=== PATIENT | female | born 1975 | race Two or more races ===

== ENCOUNTER 2022-09-08 07:33 | Outpatient (CLI) | payer OTHER | END 2022-09-08 07:39 | disposition home or self-care (01) | LOC: LAB 07:33 | PROVIDERS: ATTEND Obstetrics & Gynecology | DX: N91.2 Amenorrhea, unspecified (principal); E78.5 Hyperlipidemia, unspecified; E34.9 Endocrine disorder, unspecified; N95.1 Menopausal and female climacteric states; R19.00 Intra-abdominal and pelvic swelling, mass and lump, unspecified site; N39.0 Urinary tract infection, site not specified; E55.9 Vitamin D deficiency, unspecified; E23.6 Other disorders of pituitary gland ==

== ENCOUNTER 2022-09-20 14:25 | Outpatient (CLI) | payer OTHER | END 2022-09-20 14:29 | disposition home or self-care (01) | LOC: MAMO-SONO 14:25 | PROVIDERS: ATTEND Obstetrics & Gynecology | DX: N63.10 Unspecified lump in the right breast, unspecified quadrant (principal); N63.20 Unspecified lump in the left breast, unspecified quadrant; Z12.31 Encounter for screening mammogram for malignant neoplasm of breast ==

== ENCOUNTER 2024-08-14 06:21 | Outpatient (CLI) | payer OTHER ==
[2024-08-14 07:49] LABS: URINE BACTERIA 303.5 uL (0.0-1933); URINE EPITHELIAL CELLS 5.6 uL (0.0-38.8); URINE RBC 11.7 uL (0.0-20.8); URINE WBC 18.9 uL (0.0-23.2)
[2024-08-14 08:00] LABS: URINE BILIRRUBIN NEGATIVE (NEGATIVE); URINE BLOOD MODERATE; URINE GLUCOSE NEGATIVE (NEGATIVE); URINE KETONE NEGATIVE (NEGATIVE); URINE LEUKOCYTE NEGATIVE; URINE NITRATE NEGATIVE; URINE PROTEIN NEGATIVE (NEGATIVE); URINE UROBILINOGEN 0.2 E.U./dl
[2024-08-14 08:02] LABS: URINE APPEARANCE CLEAR; URINE COLOR YELLOW
[2024-08-14 08:16] LABS: HEMATOCRIT 39.3 % (36.0-45.00); HEMOGLOBIN 13.2 g/dL (12.0-15.00); MEAN CELL VOLUME 94.7 fL (80.00-100.00); MEAN CORPUSCULAR HEMOGLOBIN 31.9 pg (27.00-32.0); MEAN CORPUSCULAR HGB CONC 33.6 g/dl (32.0-36.0); PLATELET COUNT 195 K/uL (150-450); RED BLOOD COUNT 4.15 M/uL (4.00-6.00); RED CELL DISTRIBUTION WIDTH 12.9 % (11.5-14.5)
[2024-08-14 08:54] LABS: ALBUMIN 3.9 gm/dL (3.4-5.0); BILIRUBIN TOTAL 0.62 mg/dL (0.3-1.2); CALCIUM 8.8 mg/dL (8.5-10.1); CHOL HDL RATIO 2.9 (0-5.0); CREATININE SERUM 0.78 mg/dL (0.55-1.02); GFR 79.16; GLOBULINA 3.3 G/DL (2.4-3.5); POTASSIUM 3.89 mEq/L (3.5-5.1); TOTAL PROTEIN 7.2 gm/dL (6.4-8.2)
[2024-08-14 12:29] LABS: TSH 2.55 uIU/mL (0.358-3.74)
[2024-08-15 09:10] LABS: FOLLICLE STIMULATING HORMONE 22.4 mIU/mL (.); LEUTEINIZING HORMONE 8.2 mIU/mL (.)
== END 2024-08-14 06:27 | disposition home or self-care (01) ==
LOC: LAB 06:21
PROVIDERS: ATTEND Obstetrics & Gynecology
DX: E34.9 Endocrine disorder, unspecified (principal); N39.0 Urinary tract infection, site not specified; N91.2 Amenorrhea, unspecified; E78.5 Hyperlipidemia, unspecified; E55.9 Vitamin D deficiency, unspecified

== ENCOUNTER 2025-03-05 06:11 | Outpatient (CLI) | payer OTHER ==
[2025-03-05 06:51] LABS: URINE APPEARANCE Cloudy; URINE BILIRRUBIN Negative (NEGATIVE); URINE COLOR Yellow; URINE GLUCOSE Negative (NEGATIVE); URINE KETONE Negative (NEGATIVE); URINE LEUKOCYTE Trace; URINE NITRATE Negative; URINE PROTEIN Trace (NEGATIVE); URINE UROBILINOGEN 0.2 E.U./dl
[2025-03-05 06:53] LABS: BASO % 1.3 % (0.1-1.2); EOS # 0.10 (0.04-0.54); EOS % 2.6 % (0.7-7.0); LYMPH # 0.94 (1.18-3.74); LYMPH % 24.2 % (19.3-53.1); MEAN PLATELET VOLUME 10.00 fl (9.4-12.4); MONO # 0.31 (0.24-0.82); MONO % 8.0 % (4.7-12.5); NEUT # 2.48 (1.56-6.13); NEUT % 63.6 % (34.0-71.1); RED CELL DISTRIBUTION WIDTH 11.9 % (11.6-14.4)
[2025-03-05 06:55] LABS: URINE BACTERIA 4607.8 uL (0.0-1933); URINE CAST 0.14 uL (0.0-1.40); URINE EPITHELIAL CELLS 108.9 uL (0.0-38.8); URINE RBC 22.1 uL (0.0-20.8); URINE WBC 36.4 uL (0.0-23.2)
[2025-03-05 06:56] LABS: URINE BLOOD TRACES
[2025-03-05 07:28] LABS: ALT/SGPT 23.0 U/L (12-78); AST/SGOT 16.0 U/L (15-37); BILIRUBIN TOTAL 0.61 mg/dL (0.3-1.2); BUN CREA RATIO 23.0 (7.0-25.0); CHOL HDL RATIO 2.5 (0-5.0); CREATININE SERUM 0.66 mg/dL (0.55-1.02); GFR 96.0; GLOBULINA 2.9 G/DL (2.4-3.5); GLUCOSE FASTING 78.0 mg/dL (65-100); HDL 74.0 mg/dl (40-60); LDL 102.0 mg/dl (0-130); OSMOLALITY SERUM 281.0 MOSM/KG (275-295); VLDL 12.0 (0-39)
== END 2025-03-05 06:14 | disposition home or self-care (01) ==
LOC: LAB 06:11
PROVIDERS: ATTEND Internal Medicine
DX: G62.9 Polyneuropathy, unspecified (principal); M79.7 Fibromyalgia; Z01.810 Encounter for preprocedural cardiovascular examination

== ENCOUNTER 2025-03-05 07:25 | Outpatient (CLI) | payer OTHER | END 2025-03-05 07:31 | disposition home or self-care (01) | LOC: RAD 07:25 | PROVIDERS: ATTEND Internal Medicine | DX: G62.9 Polyneuropathy, unspecified (principal); M79.7 Fibromyalgia; Z01.810 Encounter for preprocedural cardiovascular examination ==

== ENCOUNTER 2025-03-06 09:20 | Outpatient (CLI) | payer OTHER ==
[2025-03-06 10:23] LABS: ob NEGATIVE (NEGATIVE)
== END 2025-03-06 09:23 | disposition home or self-care (01) ==
LOC: LAB 09:20
PROVIDERS: ATTEND Internal Medicine
DX: G62.9 Polyneuropathy, unspecified (principal); M79.7 Fibromyalgia; Z01.810 Encounter for preprocedural cardiovascular examination; Z12.11 Encounter for screening for malignant neoplasm of colon